=== PATIENT | female | born 1955 | race African-American/Black ===

== ENCOUNTER 2025-03-20 00:06 | Day surgery (SDC) | payer MEDICARE, MEDICAID, SELFPAY ==
[2025-03-08 14:30] VITALS: BMI 34.2
--- OUTSIDE RECORDS SUMMARY | 2025-03-20 00:09 | XMS_ITS | Data Portability ---
Author Organization [facility] MARKTamie Address [address] [place] [address] Care Team Providers Care Box Feeder Name Role Phone ZULEIMA LOJA Primary Care Provider Assessment No assessment recorded. Plan of Treatment Reminders Order Date Submit Date Provider Last Modified By Organization Details Last Modified Time Details Appointments ANY 30 2024 09:30A Wanda Bennett MD Not available Not available Not available Lab lipid panel, serum 2024 025 [facility], [address], [address], [place], [address], 02/21/2025 10:29:42 CBC 2024 025 [facility], [address], [address], [place], [address], 02/21/2025 10:29:44 CMP, serum or plasma 2023 024 [facility], [address], [place], [address], 03/17/2024 06:18:51 lipid panel, serum 2023 024 [facility], [address], [address], [place], [address], 03/17/2024 06:18:50 CBC 2023 024 [facility], [address], [address], [place], [address], 03/17/2024 06:18:52 TSH, ultra-s ensitiv e, serum 2023 024 [facility], [address], [address], [place], [address], 03/17/2024 06:18:51 Referral gastroe nterolo gist referra l 2024 025 andrzej Lopez MD, [address] [facility] [address], [place], [address], 02/20/2025 10:09:47 Procedures None recorde d. Surgeries None recorde d. Imaging MAMMO, screeni ng, digital , bilater al 2024 025 [facility] ([facility]amm[facility]) , [address], [place], [address], 03/14/2025 15:33:37 bone density 2024 025 [facility], [address], [place], [address], 03/12/2025 15:53:11 MAMMO, screeni ng, digital , bilater al 2023 024 [facility] ([facility]), [address] [place], [address], 03/22/2024 11:41:59 Medication Orders amlodip ine 5 mg tablet 2023 024 [facility], [address], [place], [id number], 11/02/2024 16:04:48 losarta n 100 mg-hydr ochloro thiazid e 12.5 mg tablet 2023 024 [facility], [address] [place] [address], [id number], 07/04/2024 11:02:18 atorvas tatin 40 mg tablet 2023 024 [facility], [address] [place] [address], [id number], 11/02/2024 16:04:50 ergocal ciferol (vitami n D2) 1,250 mcg (50,000 unit) capsule 2023 024 [facility], [address] [place] [address], [id number], 07/04/2024 11:02:19 ibuprof en 800 mg tablet 2023 024 [facility], [address] [place] [address], [id number], 05/08/2024 15:47:39 Patient TargetsNo targets recorded. Patient Instructions Encounter Date Encounter Id Patient Instructions Last Modified By Organization Details Last Modified Time 03/14/2024 [id number] high cholesterol : care instructions [email or web address] Not available 03/14/2024 17:05:57 A healthy lifestyle: care instructions Not available 03/14/2024 17:05:57 learning about breast cancer screening [email or web address] Not available 03/14/2024 17:07:46 learning about high blood pressure Not available 03/14/2024 17:05:57 05/02/2024 [id number] A healthy lifestyle: care instructions [email or web address] Not available 05/02/2024 15:57:42 07/25/2024 [id number] learning about high blood pressure [email or web address] Not available 07/25/2024 10:50:56 high cholesterol : care instructions [email or web address] Not available 07/25/2024 10:50:56 11/28/2024 [id number] learning about high blood pressure [email or web address] Not available 11/28/2024 10:44:37 high cholesterol : care instructions Not available 11/28/2024 10:44:37 02/20/2025 [id number] advance care planning: care instructions Not available 02/20/2025 10:53:06 preventing falls : care instructions [email or web address] Not available 02/20/2025 10:53:06 Quitting Tobacco : Care Instructions [email or web address] Not available 02/20/2025 10:53:06 Medicare Wellnes s Preventive Checklist [email or web address] Not available 02/20/2025 10:53:07 eating healthy foods: care instructions Not available 02/20/2025 10:53:06 AD8 Dementia Screening Interview [email or web address] Not available 02/20/2025 10:53:06 Reason for Referral Customer Experience Associate Referral for Screening for malignant neoplasm of colon History colon polyps. Last colonoscopy over 5 yrs ago Referring Physician: Zuleima Loja, Internal Medicine, Encounter Date: 11/28/2024 Results Created Date Observation Date Name Description Value Unit Range Abnormal Flag Note LastModifiedBy Organization Detail LastModifiedTime 03/16/20 24 03/17/2024 LIPID PANEL cholesterol, total 192 mg/dL 100-19 9 Not Available [facility] ([facility]) [address] [place], [address], 03/17/2024 06:18:50 03/16/20 24 03/17/2024 LIPID PANEL triglyceride s 119 mg/dL 0-149 Not Available [facility] ([facility]) [address] [place], [address], 03/17/2024 06:18:50 03/16/2003/17/2024 LIPID PANEL HDL cholesterol 45 mg/dL >39 Not Available [facility] ([facility]) [address] [place], [address], 03/17/2024 06:18:50 03/16/20 24 03/17/2024 LIPID PANEL VLDL cholesterol олег 21 mg/dL 5-40 Not Available [facility] ([facility]) [address] [place], [address], 03/17/2024 06:18:50 03/16/20 24 03/17/2024 LIPID PANEL LDL chol calc ([facility]) 126 mg/dL 0-99 above high normal Not Available [facility] ([facility]) [address] [place], [address], 03/17/2024 06:18:50 03/16/20 24 03/17/2024 COMP. METAB OLIC PANEL (14) glucose 93 mg/dL 70-99 Not Available [facility] ([facility]) [address] [place], [address], 03/17/2024 06:18:50 03/16/20 24 03/17/2024 COMP. METAB OLIC PANEL (14) BUN 9 mg/dL 8-27 Not Available [facility] ([facility]) [address] [place], [address], 03/17/2024 06:18:50 03/16/20 24 03/17/2024 COMP. METAB OLIC PANEL (14) creatinine 0.60 mg/dL 0.57-1 .00 Not Available [facility] ([facility]) [address] [place], [address], 03/17/2024 06:18:50 03/16/20 24 03/17/2024 COMP. METAB OLIC PANEL (14) eGFR 98 mL/mi n/1.7 3 >59 Not Available [facility] ([facility]) [address] [place], [address], 03/17/2024 06:18:50 03/16/20 24 03/17/2024 COMP. METAB OLIC PANEL (14) BUN/creatini ne ratio 15 12-28 Not Available [facility] ([facility]) [address] [place], [address], 03/17/2024 06:18:50 03/16/20 24 03/17/2024 COMP. METAB OLIC PANEL (14) sodium 139 mmol/ L 134-14 4 Not Available [facility] ([facility]) [address] [place], [address], 03/17/2024 06:18:50 03/16/20 24 03/17/2024 COMP. METAB OLIC PANEL (14) potassium 4.3 mmol/ L 3.5-5. 2 Not Available [facility] ([facility]) [address] [place], [address], 03/17/2024 06:18:50 03/16/20 24 03/17/2024 COMP. METAB OLIC PANEL (14) chloride 102 mmol/ L 96-106 Not Available [facility] ([facility]) [address] [place], [address], 03/17/2024 06:18:50 03/16/20 24 03/17/2024 COMP. METAB OLIC PANEL (14) carbon dioxide, total 26 mmol/ L 20-29 Not Available [facility] ([facility]) [address] [place], [address], 03/17/2024 06:18:50 03/16/20 24 03/17/2024 COMP. METAB OLIC PANEL (14) calcium 9.3 mg/dL 8.7-10 .3 Not Available [facility] ([facility]) [address] [place], [address], 03/17/2024 06:18:50 03/16/20 24 03/17/2024 COMP. METAB OLIC PANEL (14) protein, total 6.9 g/dL 6.0-8. 5 Not Available [facility] ([facility]) [address] [place], [address], 03/17/2024 06:18:50 03/16/20 24 03/17/2024 COMP. METAB OLIC PANEL (14) albumin 3.8 g/dL 3.9-4. 9 below low normal Not Available [facility] ([facility]) [address] [place], [address], 03/17/2024 06:18:50 03/16/20 24 03/17/2024 COMP. METAB OLIC PANEL (14) globulin, total 3.1 g/dL 1.5-4. 5 Not Available [facility] ([facility]) [address] [place], [address], 03/17/2024 06:18:50 03/16/20 24 03/17/2024 COMP. METAB OLIC PANEL (14) A/G ratio 1.2 1.2-2. 2 Not Available [facility] ([facility]) [address] [place], [address], 03/17/2024 06:18:50 03/16/20 24 03/17/2024 COMP. METAB OLIC PANEL (14) bilirubin, total 0.4 mg/dL 0.0-1. 2 Not Available [facility] ([facility]) [address] [place], [address], 03/17/2024 06:18:50 03/16/20 24 03/17/2024 COMP. METAB OLIC PANEL (14) alkaline phosphatase 122 IU/L 44-121 above high normal Not Available [facility] ([facility]) [address] [place], [address], 03/17/2024 06:18:50 03/16/20 24 03/17/2024 COMP. METAB OLIC PANEL (14) AST (SGOT) 28 IU/L 0-40 Not Available [facility] ([facility]) [address] [place], [address], 03/17/2024 06:18:50 03/16/20 24 03/17/2024 COMP. METAB OLIC PANEL (14) ALT (SGPT) 25 IU/L 0-32 Not Available [facility] ([facility]) [address] [place], [address], 03/17/2024 06:18:50 03/16/2003/17/2024 TSH TSH 2.890 uIU/m L 0.450- 4.500 Not Available [facility] ([facility]) [address] [facility], [place], [address], 03/17/2024 06:18:51 03/16/2003/17/2024 CBC, PLATE LET, NO DIFFE RENTI AL WBC 5.3 x10e3 /uL 3.4-10 .8 Not Available [facility] ([facility]) [address] [facility], [place], [address], 03/17/2024 06:18:52 03/16/2003/17/2024 CBC, PLATE LET, NO DIFFE RENTI AL RBC 4.65 x10e6 /uL 3.77-5 .28 Not Available [facility] ([facility]) [address] [facility], [place], [address], 03/17/2024 06:18:52 03/16/2003/17/2024 CBC, PLATE LET, NO DIFFE RENTI AL hemoglobin 13.4 g/dL 11.1-1 5.9 Not Available [facility] ([facility]) [address] [facility], [place], [address], 03/17/2024 06:18:52 03/16/2003/17/2024 CBC, PLATE LET, NO DIFFE RENTI AL hematocrit 41.3 % 34.0-4 6.6 Not Available [facility] ([facility]) [address] [facility], [place], [address], 03/17/2024 06:18:52 03/16/2003/17/2024 CBC, PLATE LET, NO DIFFE RENTI AL MCV 89 fL 79-97 Not Available [facility] ([facility]) [address] [place], [address], 03/17/2024 06:18:52 05/02/20 24 03/17/2024 CBC, PLATE LET, NO DIFFE RENTI AL MCH 28.8 pg 26.6-3 3.0 Not Available [facility] ([facility]) [address] [place], [address], 03/17/2024 06:18:52 03/16/20 24 03/17/2024 CBC, PLATE LET, NO DIFFE RENTI AL MCHC 32.4 g/dL 31.5-3 5.7 Not Available [facility] ([facility]) [address] [place], [address], 03/17/2024 06:18:52 03/16/20 24 03/17/2024 CBC, PLATE LET, NO DIFFE RENTI AL RDW 13.7 % 11.7-1 5.4 Not Available [facility] ([facility]) [address] [place], [address], 03/17/2024 06:18:52 03/16/20 24 03/17/2024 CBC, PLATE LET, NO DIFFE RENTI AL platelets 510 x10e3 /uL 150-45 0 above high normal Not Available [facility] ([facility]) [address] [place], [address], 03/17/2024 06:18:52 02/21/20 25 02/21/2025 LIPID PANEL cholesterol, total 210 mg/dL 100-19 9 above high normal Not Available [facility] ([facility]) [address] [place], [address], 02/21/2025 10:29:42 02/21/20 25 02/21/2025 LIPID PANEL triglyceride s 163 mg/dL 0-149 above high normal Not Available [facility] ([facility]) [address] [place], [address], 02/21/2025 10:29:42 02/21/20 25 02/21/2025 LIPID PANEL HDL cholesterol 45 mg/dL >39 Not Available [facility] ([facility]) [address] [facility], [place], [address], 02/21/2025 10:29:42 02/21/20 25 02/21/2025 LIPID PANEL VLDL cholesterol олег 29 mg/dL 5-40 Not Available [facility] ([facility]) [address] [facility], [place], [address], 02/21/2025 10:29:42 02/21/20 25 02/21/2025 LIPID PANEL LDL chol calc ([facility]) 136 mg/dL 0-99 above high normal Not Available [facility] ([facility]) [address] [facility], [place], [address], 02/21/2025 10:29:42 02/21/20 25 02/21/2025 CBC, PLATE LET, NO DIFFE RENTI AL WBC 6.1 x10e3 /uL 3.4-10 .8 Not Available [facility] ([facility]) [address] [facility], [place], [address], 02/21/2025 10:29:44 02/21/20 25 02/21/2025 CBC, PLATE LET, NO DIFFE RENTI AL RBC 4.93 x10e6 /uL 3.77-5 .28 Not Available [facility] ([facility]) [address] [facility], [place], [address], 02/21/2025 10:29:44 02/21/20 25 02/21/2025 CBC, PLATE LET, NO DIFFE RENTI AL hemoglobin 14.2 g/dL 11.1-1 5.9 Not Available [facility] ([facility]) [address] [facility], [place], [address], 02/21/2025 10:29:44 02/21/20 25 02/21/2025 CBC, PLATE LET, NO DIFFE RENTI AL hematocrit 43.3 % 34.0-4 6.6 Not Available [facility] ([facility]) [address] [facility], [place], [address], 02/21/2025 10:29:44 02/21/20 25 02/21/2025 CBC, PLATE LET, NO DIFFE RENTI AL MCV 88 fL 79-97 Not Available [facility] ([facility]) [address] [facility], [place], [address], 02/21/2025 10:29:44 02/21/20 25 02/21/2025 CBC, PLATE LET, NO DIFFE RENTI AL MCH 28.8 pg 26.6-3 3.0 Not Available [facility] ([facility]) [address] [facility], [place], [address], 02/21/2025 10:29:44 02/21/20 25 02/21/2025 CBC, PLATE LET, NO DIFFE RENTI AL MCHC 32.8 g/dL 31.5-3 5.7 Not Available [facility] ([facility]) [address] [facility], [place], [address], 02/21/2025 10:29:44 02/21/20 25 02/21/2025 CBC, PLATE LET, NO DIFFE RENTI AL RDW 14.0 % 11.7-1 5.4 Not Available [facility] ([facility]) [address] [facility], [place], [address], 02/21/2025 10:29:44 02/21/20 25 02/21/2025 CBC, PLATE LET, NO DIFFE RENTI AL platelets 536 x10e3 /uL 150-45 0 above high normal Not Available [facility] ([facility]) [address] [facility], [place], [address], 02/21/2025 10:29:44 03/22/20 24 03/22/2024 MAMMO , scree shadi, digit al, bilat eral No observ [facility]ion [facility] [address] [place], [address], 04/04/2024 12:51:32 03/22/20 24 03/22/2024 MAMMO , scree shadi, digit al, bilat eral No observ ation record ed. [facility] [address], [place], [address], 04/04/2024 12:51:32 Result Notes None recorded. Problems Name Problem SNOMED Code Status Onset Date Resolution Date Notes Provider Name and Address Organization Details Recorded Time Essential hypertension 19470846 Active 2023 Zuleima Loja MD Attn: Angel dang,[address], [place], [address], [place] [facility] 4 16:49:02 Hyperlipidemia 85888524 Active 2023 Zuleima Loja MD Attn: Angel dang,[address] [facility], [place], [address], [place] [facility] 4 16:49:40 Vitamin D deficiency 10025860 Active 2023 Zuleima Loja MD Attn: Angel g,[address], [place], [address], [place] [facility] 4 16:50:12 Pain of multiple joints 10332949 Active 2023 Zuleima Loja MD Attn: Angel dang,[address], [place], [address], [place] [facility] 4 16:51:42 Screening for malignant neoplasm of breast Active 2023 Zuleima Loja MD Attn: Angel g,[address] [facility], [place], [address], [place] [facility] 4 17:06:38 Screening for malignant neoplasm of colon Active 2024 Zuleima Loja MD Attn: Angel dang,[address], [place], [address], [place] [facility] 5 10:48:30 Spasm 26487852 Active 2024 Zuleima Loja MD Attn: Angel dang,[address] [facility], [place], [address], [facility] - [facility] 5 10:57:39 Notes:Some problems listed i n Document: #[id number] could not be added to this patient's chart. Please review this document and add these problems to the patient's chart manually as needed. Problem Notes None recorded. Procedures Surgical History Date Name Laterality Status Provider Name and Address Organization Details Recorded Time 4 Date of Last Mammogram completed Samantha Wolfe [place] [facility] 05/02/2024 14:01:45 3 Endometrial Biopsy completed MARLEN ARDON Attn: Accounting,[address] [facility], [place], [address], [facility] - [facility] 06/08/2023 12:53:29 2 Date of Last Pap Smear completed Karlee Quezada MA [place] [facility] 03/18/2022 09:52:51 1 Endometrial Biopsy completed MARLEN RADON Attn: Accounting,[address] [facility], [place], [address], [facility] - SI 04/10/2021 16:48:28 0 total knee replacement completed Tamia Limon MA [facility] 04/15/2021 11:09:19 7 colonoscopy completed Tamia Limon MA [facility] - [facility] 04/15/2021 11:12:07 0 removal of ectopic fetus completed MARLEN ARDON Attn: Accounting,[address] [facility], [place], [address], [facility] - SI 04/10/2021 16:49:34 Imaging Results Imaging Date Name Status LastModified by Organiz ation Details LastModified Time 03/22/2024 MAMMO, screening, digital, bilateral completed [address], [address], 04/04/2024 12:51:32 03/22/2024 MAMMO, screening, digital, bilateral completed [facility] [address] [place], [address], 04/04/2024 12:51:32 Procedure Notes None recorded. Medical Equipment None Reported. Allergies No known drug allergies Medications Name Sig Start Date Stop Date Status Note LastModified by Organization Details LastModified Time celecoxib 200 mg capsule TK 2 CS PO WITH BREAKFAST THE DAY BEFORE SURGERY. TK 1 BID FOR 4 DAYS AFTER DISCHARGE 04/10 completed Not Available Not Available Not Available penicillin V potassium 250 mg tablet 04/10 completed Not Available Not Available Not Available amoxicillin 500 mg capsule TAKE TWO CAPSULES BY MOUTH AT ONCE, THEN TAKE ONE CAPSULE FOUR TIMES DAILY UNTIL GONE FOR INFECTION 03/14 completed Not Available Not Available Not Available atorvastati n 40 mg tablet TAKE ONE TABLET BY MOUTH EVERY NIGHT AT BEDTIME TO LOWER CHOLESTER OL active Not Available Not Available No t Available prednisone 10 mg tablet 02/16 completed Not Available Not Available Not Available doxycycline hyclate 100 mg capsule TAKE ONE CAPSULE BY MOUTH TWICE DAILY FOR 10 DAYS 07/09 completed Not Available Not Available Not Available cetirizine 10 mg tablet TAKE 1 TABLET BY MOUTH DAILY active Not Available Not Available No t Available azithromyci n 250 mg tablet TAKE 2 TABLETS BY MOUTH FOR 1 DAY THEN TAKE 1 TABLET BY MOUTH DAILY FOR 4 DAYS 11/28 completed Not Available Not Available Not Available ibuprofen 800 mg tablet TAKE ONE TABLET BY MOUTH TWICE DAILY EVERY MORNING & EVENING WITH MEALS FOR PAIN active Not Available Not Available No t Available tizanidine 4 mg tablet 04/10 completed Not Available Not Available Not Available benzonatate 200 mg capsule TAKE 1 CAPSULE BY MOUTH EVERY 8 HOURS NEEDED FOR COUGH active Not Available Not Available No t Available penicillin V potassium 500 mg tablet TAKE 1 TABLET BY MOUTH FOUR TIMES DAILY FOR 10 DAYS 04/10 completed Not Available Not Available Not Available acetaminoph en 300 mg-codeine 30 mg tablet TAKE 1-2 TABLETS BY MOUTH EVERY 6 HOURS NEEDED FOR PAIN 12/11 completed Not Available Not Available Not Available amlodipine 5 mg tablet TAKE ONE TABLET BY MOUTH EVERY EVENING FOR BLOOD PRESSURE active Not Available Not Available No t Available sulfamethox azole 800 mg-trimetho prim 160 mg tablet TK 1 T PO BID FOR 7 DAYS 04/10 completed Not Available Not Available Not Available tramadol 50 mg tablet TAKE 1 TABLET BY MOUTH EVERY 8 HOURS NEEDED 03/14 completed Not Available Not Available Not Available oxycodone-a cetaminophe n 5 mg-325 mg tablet TAKE ONE TABLET BY MOUTH EVERY 6 HOURS NEEDED FOR moderate pain (4-6 ON scale) 08/12 completed Not Available Not Available Not Available amoxicillin 875 mg tablet TAKE 1 TABLET BY MOUTH EVERY 12 HOURS active Not Available Not Available No t Available prednisolon e acetate 1 % eye drops,suspe nsion instill one drop into surgical IN THE AFFECTED EYE THREE TIMES DAILY STARTING AFTER surgery AND continue FOR THREE WEEKS 03/14 completed Not Available Not Available Not Available aspirin 325 mg tablet,justin yed release 04/10 completed Not Available Not Available Not Available ciprofloxac in 0.3 % eye drops instill ONE drop into surgical IN THE AFFECTED EYE THREE TIMES DAILY STARTING TWO WEEKS prior TO surgery AND continuin g FOR one WEEK AFTER 03/14 completed Not Available Not Available Not Available cephalexin 500 mg capsule TAKE ONE CAPSULE BY MOUTH EVERY 8 HOURS FOR 10 DAYS 12/11 completed Not Available Not Available Not Available erythromyci n 5 mg/gram (0.5 %) eye ointment apply ONE applicati on in THE affected IN THE AFFECTED EYE EVERY 8 HOURS 07/09 completed Not Available Not Available Not Available diclofenac 0.1 % eye drops instill one drop into surgical IN THE AFFECTED EYE THREE TIMES DAILY beginning TWO DAYS prior TO surgery AND continuin g FOR TWO WEEKS AFTER 03/14 completed Not Available Not Available Not Available hydrochloro thiazide 12.5 mg capsule TAKE 1 CAPSULE BY MOUTH EVERY DAY DIRECTED 08/15 completed Not Available Not Available Not Available mupirocin 2 % topical ointment APPLY TOPICALLY TO NOSTRILS BID STARTING 5 DAYS PRIOR TO SURGERY 04/10 completed Not Available Not Available Not Available ergocalcife rol (vitamin D2) 1,250 mcg (50,000 unit) capsule TAKE ONE CAPSULE BY MOUTH ONCE WEEKLY FOR VITAMIN DEFICIANC Y active Not Available Not Available No t Available methylpredn isolone 4 mg tablets in a dose pack FOLLOW PACKAGE DIRECTION S 11/28 completed Not Available Not Available Not Available albuterol sulfate HFA 90 mcg/actuati on aerosol inhaler INHALE 2 PUFFS BY MOUTH EVERY 4-6 HOURS NEEDED active Not Available Not Available No t Available celecoxib 100 mg capsule TAKE 1 CAPSULE BY MOUTH EVERY DAY NEEDED 03/14 completed Not Available Not Available Not Available ondansetron 4 mg disintegrat ing tablet 04/10 completed Not Available Not Available Not Available losartan 100 mg tablet TAKE ONE TABLET BY MOUTH EVERY DAY FOR BLOOD PRESSURE 05/02 completed Not Available Not Available Not Available fluticasone propionate 50 mcg/actuati on nasal spray,suspe nsion 1 SPRAY IN EACH NOSTRIL EVERY NIGHT BEFORE BEDTIME active Not Available Not Available No t Available naproxen 500 mg tablet TAKE 1 TABLET BY MOUTH TWICE DAILY WITH FOOD 04/10 completed Not Available Not Available Not Available cyclobenzap rine 5 mg tablet TAKE ONE TABLET BY MOUTH THREE TIMES A DAY, MORNING, MIDDAY AND BEDTIME NEEDED FOR MUSCLE SPASMS active Not Available Not Available No t Available nitrofurant oin monohydrate /macrocryst als 100 mg capsule Take 1 capsule every 12 hours by oral route for 5 days. 03/14 completed Not Available Not Available Not Available losartan 100 mg-hydrochl orothiazide 12.5 mg tablet TAKE ONE TABLET BY MOUTH EVERY MORNING FOR BLOOD PRESSURE & FLUID RETENTION active Not Available Not Available No t Available Oysco 500/D 500 mg-5 mcg (200 unit) tablet TAKE 1 TABLET BY MOUTH TWICE DAILY 07/09 completed Not Available Not Available Not Available hydrochloro thiazide 12.5 mg tablet TAKE 1 TABLET BY MOUTH ONCE DAILY FOR BLOOD PRESSURE AND FOR FLUID RETENTION 11/28 completed Not Available Not Available Not Available cholecalcif jarrod (vitamin D3) 1,250 mcg (50,000 unit) capsule Take 1 capsule every week by oral route as directed for 30 days. 03/14 completed Not Available Not Available Not Available Calcium with Vitamin D 600 mg-10 mcg (400 unit) tablet Take 1 tablet twice a day by oral route. 03/14 completed Not Available Not Available Not Available Stimulant Laxative Plus 8.6 mg-50 mg tablet 04/10 completed Not Available Not Available Not Available Pennsaid 20 mg/gram/act uation (2 %) topical soln in metered-dos e pump APPLY 2 PUMPS (40 MG) TO THE AFFECTED KNEE(S) BY TOPICAL ROUTE 2 TIMES PER DAY 04/22 completed Not Available Not Available Not Available COVID-19 test specimen collection TEST DIRECTED TODAY 03/18 completed Not Available Not Available Not Available BinaxNOW COVID-19 Ag Self Test kit TEST DIRECTED TODAY active Not Available Not Available No t Available Paxlovid 300 mg (150 mg x 2)-100 mg tablets in a dose pack FOLLOW PACKAGE DIRECTION S 03/14 completed Not Available Not Available Not Available Vitals Date Recorded Body height Provider Name an d Address Organization Details Last Updated DateTime 03/14/2024 160.02 cm Tanesha Christina MA [facility] 4 16:23:41 Date Recorded Body mass index (BMI) Body weight Heart rate Oxygen saturation Oxygen saturation in Arterial blood by Pulse oximetry Systolic blood pressure Diastolic blood pressure Provider Name and Address Organization Details Last Updated DateTime 4 36.5 kg/m2 77428.0 3 g 89 /min 98 % 98 % 134 mm[Hg] 74 mm[Hg] Steph Angeles MA [facility] 4 16:36:08 Date Recorded Body height Body temperature Respiratory rate Body mass index (BMI) Body weight Oxygen saturation Oxygen saturation in Arterial blood by Pulse oximetry Heart rate Systolic blood pressure Diastolic blood pressure Provider Name and Address Organization Details Last Updated DateTime 4 160.02 cm 98.1 [degF] 16 /min 36.7 kg/m2 75277.6 2 g 98 % 98 % 90 /min 130 mm[Hg] 74 mm[Hg] Samantha Wolfe MA [facility] 4 14:17:01 Date Recorded Body height Body mass index (BMI) Body weight Heart rate Oxygen saturation Oxygen saturation in Arterial blood by Pulse oximetry Systolic blood pressure Diastolic blood pressure Provider Name and Address Organization Details Last Updated DateTime 4 160.02 cm 36.9 kg/m2 62419.5 7 g 73 /min 99 % 99 % 145 mm[Hg] 74 mm[Hg] Maureen Shannon MA [facility] 4 10:15:05 Date Recorded Body height Body mass index (BMI) Body weight Heart rate Oxygen saturation Oxygen saturation in Arterial blood by Pulse oximetry Systolic blood pressure Diastolic blood pressure Provider Name and Address Organization Details Last Updated DateTime 5 160.02 cm 37.4 kg/m2 93821.9 9 g 79 /min 98 % 98 % 122 mm[Hg] 77 mm[Hg] Maureen Shannon MA [facility] 5 10:22:15 Date Recorded Body height Body mass index (BMI) Body weight Heart rate Oxygen saturation Oxygen saturation in Arterial blood by Pulse oximetry Systolic blood pressure Diastolic blood pressure Provider Name and Address Organization Details Last Updated DateTime 5 160.02 cm 37 kg/m2 63980.8 1 g 81 /min 99 % 99 % 138 mm[Hg] 70 mm[Hg] Maureen Shannon MA [facility] 5 10:14:25 Social History Question Answer Notes LastModified by Organizat ion Details LastModified Time Tobacco Smoking Status Former Smoker Elda Jordan MA [facility], [facility] 04/10/2021 15:15:18 Do You Have An Advance Directive? No Information not available 04/10/2021 What Is Your Level Of Alcohol Consumption? None Information not available 04/10/2021 Are You Blind Or Do You Have Difficulty Seeing? No Information not available 03/14/2024 What Is Your Level Of Caffeine Consumption? Occasional Information not available 02/16/2022 Are You Currently Employed? No Retired Information not available 03/18/2022 Are You Deaf Or Do You Have Serious Difficulty Hearing? No Information not available 03/14/2024 What Type Of Diet Are You Following? REGULAR Information not available 03/14/2024 What Was The Date Of Your Most Recent Tobacco Screening? 02/20/2025 Information not available 02/20/2025 What Is Your Relationship Status? Information not available 04/10/2021 Do You Use Your Seat Belt Or Car Seat Routinely? Yes Information not available 04/15/2021 Are You Sexually Active? Yes Information not available 04/10/2021 Do You Have Smoke And Carbon Monoxide Detectors In Your Home? Yes Information not available 04/10/2021 At What Age Did You Start Smoking Tobacco? 17 Information not available 04/10/2021 Are You Passively Exposed To Smoke? Yes Information not available 04/10/2021 Do You Feel Stressed (tense, Restless, Nervous, Or Anxious, Or Unable To Sleep At Night)? [id number] Information not available 04/15/2021 Do You Use Any Illicit Or Recreational Drugs? No Information not available 04/10/2021 Do You Use Sunscreen Routinely? No Information not available 02/16/2022 Has Tobacco Cessation Counseling Been Provided? Yes Information not available 11/28/2024 On What Date Was Tobacco Cessation Counseling Provided? 02/20/2025 Information not available 02/20/2025 Do You Or Have You Ever Used Any Other Forms Of Tobacco Or Nicotine? No Information not available 04/10/2021 Sex: Female Functional Status Question Answer Note LastModified by Organization D etails LastModified Time Are you able to care for yourself? Yes Information not available 03/14/2024 What is your exercise level? Moderate Information not available 03/14/2024 Mental Status None recorded. Family History Nothing Reported. Medical History Condition Response Coronary Artery Disease N Atrial Fibrillation N High Blood Pressure Y Depression N COPD N Blood Clots N Anxiety Disorder Y Muscle, Joint, or Bone Problems N Acid Reflux (GERD) Y Cancer N Stroke N Kidney or Bladder Problems N Asthma N Hepatitis N High Cholesterol Y Liver Disease N Thyroid Problems N GI Problems N Anemia Y Heart Attack (NH) N Diabetes N Seizures/Epilepsy N Osteoporosis Y Heart Failure N Gynecological History Statement/Question Response If Post Menopausal, Age at Menopause 54 Date of Last Pap Smear 03/18/2022 Current Control Method Menopause Date of Last Mammogram 03/22/2024 Date of LMP Obstetrics History GPAL:G 3 P 0 0 2 2 Type Value Multiple Births 1 Spontaneous 2 Living 2 Total 3 Immunizations Vaccine Type Date Status Note Provider Nam e and Address Organization Details Recorded Time COVID-19, mRNA, LNP-S, PF, 30 mcg/0.3 mL dose 0 completed Maureen [place], [place] [facility] 02/20/2025 10:05:20 COVID-19, mRNA, LNP-S, PF, 30 mcg/0.3 mL dose 1 completed [place]ureen [place] [facility] 02/20/2025 10:05:20 COVID-19, mRNA, LNP-S, PF, 30 mcg/0.3 mL dose 1 completed [place]ureen [place] [facility] 02/20/2025 10:02:12 zoster live 7 completed Maureen [place] [facility] 02/20/2025 10:05:20 COVID-19, mRNA, LNP-S, PF, 30 mcg/0.3 mL dose, javier-sucrose 2 completed SHERIE [place] [facility] 02/20/2025 10:02:12 Influenza, adjuvanted, trivalent, PF 4 completed [place]ureen [place] [facility] 02/20/2025 10:05:20 COVID-19, mRNA, LNP-S, bivalent, PF, 30 mcg/0.3 mL dose 2 completed [place]ureen [place] [facility] 02/20/2025 10:05:20 COVID-19, mRNA, LNP-S, PF, javier-sucrose, 30 mcg/0.3 mL 4 completed [place]ureen [place] [facility] 02/20/2025 10:05:20 influenza, unspecified formulation 8 completed [place]ureen [place] [facility] 02/20/2025 10:05:20 influenza, unspecified formulation 9 completed [place]ureen [place] [facility] 02/20/2025 10:05:20 influenza, unspecified formulation 7 completed SHER[place] [facility] 02/20/2025 10:05:20 Influenza, split virus, trivalent, preservative 3 completed Clarkdomo [place] [facility] 02/20/2025 10:05:20 Influenza, split virus, quadrivalent, PF 0 completed Clarkdomo [place] [facility] 02/20/2025 10:05:20 Influenza, split virus, quadrivalent, preservative 1 completed Darionandrew Re[place] [facility] 08/15/2021 11:06:11 Tdap 2 completed Darion [place] [facility] 04/22/2022 14:18:29 pneumococcal polysaccharide PPV23 2 completed Darion [place] [facility] 07/09/2022 13:15:56 Influenza, split virus, quadrivalent, PF 2 completed Mariano Aquino MD Attn: [address]ing[address] [place], [address], [place] [facility] 09/08/2022 14:59:33 Influenza, high-dose, quadrivalent, PF 3 completed Steph [place] [facility] 08/26/2023 14:40:27 Past Encounters Encounter ID Performer Location Encounter Start Date Encounter Closed Date Diagnosis/Indication Diagnosis SNOMED-CT Code Diagnosis ICD10 Code Diagnosis Note [id number] MARLEN ARDON ([employer]) [address] [place] [address] [id number] 04/10/2021 14:44:29 04/14/2021 17:14:40 Gynecologic examination 32823507 Z01.419 -clinical pelvic examinatio n completed today, unremarkab le -cervical cancer screening: last Pap unknown, updated today -routine nuswab completed, treat as needed -Educated osteoporos is prevention including calcium rich diet, weight bearing exercise. Will start supplement . Venereal d isease screening 844469429 Z11.3 Postmenopa usal bleeding 57995782 N95.0 Intermitte nt light vaginal bleeding x 2 years. TVUS revealed thickened endometriu m (13.7) and fibroid uterus. Endometria l sampling recommende d and EMB performed as documented in procedure note. Will contact pt with results. [id number] Mariano Aquino MD [facility] (Adult Med) [address] [place] [address] 0 04/15/2021 10:56:15 04/16/2021 14:20:57 Generalized osteoarthritis 003065044 M15.9 PRN on ibuprofen. Essential hypertension 69325916 I10 Low salt diet, exercise and lose weight . avoid OTC decongesta nt. Hyperlipidemia 22430388 E78.5 Low saturated and low animal fat diet. [id number] [facility] [address] [place] [address] [id number] 0 08/15/2021 09:59:51 08/18/2021 12:09:39 Hypertensive disorder 79685618 I10 Low salt diet, avoid NSAID or OTC decongesta nt if possible. Generalize d osteoarthritis 974020885 M15.9 PRN on ibuprofen. Right lower leg sore off and on, no back pain. no visible lesion on the right leg. No swelling of leg neither. Willing to try topical cream. Dyslipidemia 009612287 E 78.5 Low animal fat and low saturated fat diet. Administra tion of influenza vaccine 94076173 Z23 Not sick , no fever, had flu vaccinatio n last year. [id number] [facility] [address] [place] [address] [id number] 0 02/16/2022 09:42:59 02/17/2022 14:58:51 Hypertensive disorder 71359413 I10 Low salt diet, avoid NSAID or OTC decongesta nt if possible. Hyperlipidemia 11938145 E78.5 Low saturated and low animal fat diet. Generalize d osteoarthritis 056224177 M15.9 PRN on ibuprofen. Right lower leg sore off and on, no back pain. no visible lesion on the right leg. No swelling of leg neither. Willing to try topical cream. Screening mammography 24 414459 Z12.31 Annual check up. Screening for malignant neoplasm of cervix 479658018 Z12.4 She is going to make appointmen t with her gynecologi st. Dyslipidemia 624739750 E 78.5 Low animal fat and low saturated fat diet. Gynecologi c examination 67736855 Z01.419 Morbid obesity 792038709 E66.01 Possible metabolic syndrome x. [id number] MARLEN ARDON ([employer]) [address] [place] [address] [id number] 0 03/18/2022 09:42:21 03/20/2022 07:57:22 Gynecologic examination 17436712 Z01.419 Normal gynecologi c exam today.Cerv ical cancer screening: Last Pap March 2021 unsatisfac brentonandrew, updated todayBreas t cancer screening: Last mammogram 02/23/22, BIRADS 1. Recommende d annual screeningO steoporosi s screening: Dexa ordered todayColon oscopy: UTD (2017)Diet /exercise: Counseled regarding importance of physical activity, healthy diet and appropriat e calcium intake.RTC in 1yr Screening for osteoporosis 211734979 Z13.820 Discussed calcium/vi t D supplement ation and weight bearing exercises. [id number] MD Jed Hardin (Adult Med) [address] [place] [address] [id number] 0 04/22/2022 11:59:16 04/23/2022 11:54:23 Hypertensive disorder 39717226 I10 Low salt diet, avoid NSAID or OTC decongesta nt if possible. Blood pressure is well controlled . readinf is 140/80 mm HG today, 04-22-2022 . On amlodipine . losartan. Generalize d osteoarthritis 161691190 M15.9 PRN on ibuprofen. Right lower leg sore off and on, no back pain. no visible lesion on the right leg. No swelling of leg neither. Willing to try topical cream.On calcium with vitamin D. Senile osteopenia 217935 06 M85.80 On calcium with vitamin D. Dyslipidemia 577524330 E 78.5 Low animal fat and low saturated fat diet. and on atorvastat in. Adult heal th examination 393328641 Z00.00 Patient been interviewe d, examined and lists of medication s reviewed, NKDA. will order chest x ray and EKG as Dr. Neeta Kirby office has been contacted. They already took care of Laboratory tests,. No medical objection for the foot operation. She will do the fasting blood test another day. Administra tion of diphtheria, pertussis, and tetanus vaccine 783258774 Z23 She tolerated shot well today 04-22-2022 . [id number] MD Jed Hardin (Adult Med) [address] [place] [address] [id number] 0 07/09/2022 10:20:20 07/14/2022 15:19:53 Lateral epicondylitis of right humerus 7542231508 65308 M77.11 Discussed with patient, she agreed for x ray and referral. Administra tion of pneumococcal vaccine 20636625 Z23 She tolerated shot well. [id number] MD Jed Hardin (Adult Med) [address] [place] [address] [id number] 0 08/12/2022 09:45:24 08/13/2022 12:23:51 Hypertensive disorder 19844698 I10 Low salt diet, avoid NSAID or OTC decongesta nt if possible. Blood pressure is well controlled . reading is 140/80 mm HG today, 04-22-2022 . On amlodipine . losartan. She ran out med, will refill today. As 08-12-2022 bp is 152/78. Lateral ep icondylitis of right humerus 2303309362 40731 M77.11 Discussed with patient, she agreed for x ray and referral. She said she has not been contacted for the orthopedic , [facility] make another orthopedic referral. Dyslipidemia 954714208 E 78.5 Low animal fat and low saturated fat diet. and on atorvastat in. Generalize d osteoarthritis 514831686 M15.9 PRN on ibuprofen. Right lower leg sore off and on, no back pain. no visible lesion on the right leg. No swelling of leg neither. Willing to try topical cream.On calcium with vitamin D. [id number] MD Jed Hardin (Adult Med) [address] [place] [address] [phone] 0 09/08/2022 09:56:53 09/09/2022 10:16:53 Active or passive immunization 045302958 Z23 [id number] MD Jed Hardin (Adult Med) [address] [place] [address] [id number] 0 12/11/2022 09:43:52 12/11/2022 15:22:32 Obesity 896820017 E66.9 BMI is 35.6, she has been advised to watch her diet, exercise and keep the weight down. Essential hypertension 89438885 I10 Low salt diet, exercise and lose weight . avoid OTC decongesta nt.As 12-11-2022 , Her BP is 130/82. Dyslipidemia 517286578 E 78.5 Low animal fat and low saturated fat diet. and on atorvastat in. Hypertensive disorder 38 852429 I10 Low salt diet, avoid NSAID or OTC decongesta nt if possible. Blood pressure is well controlled . reading is 140/80 mm HG today, 04-22-2022 . On amlodipine . losartan. She ran out med, will refill today. As 08-12-2022 bp is 152/78. Generalize d osteoarthritis 366709567 M15.9 PRN on ibuprofen. Right lower leg sore off and on, no back pain. no visible lesion on the right leg. No swelling of leg neither. Willing to try topical cream.On calcium with vitamin D. [id number] Mariano Aquino MD [facility] (Adult Med) [address] [place] [address] 04/27/2023 10:39:00 04/28/2023 17:05:38 Screening mammography 71081747 Z12.31 Annual check up. copy of report provided to her today, negative. 04-27-23. Edema of l eft lower leg 695696792 R60.0 Ankle, comes and goes. Arthritis of right knee 5995725419 191524 M13.861 Under the care of orthopedic , got joint injection. Hypertensive disorder 38 732418 I10 Low salt diet, avoid NSAID or OTC decongesta nt if possible. Blood pressure is well controlled . reading is 140/80 mm HG today, 04-22-2022 . On amlodipine . losartan. She ran out med, will refill today. As 08-12-2022 bp is 152/78. Generalize d osteoarthritis 279463883 M15.9 PRN on ibuprofen. Right lower leg sore off and on, no back pain. no visible lesion on the right leg. No swelling of leg neither. Willing to try topical cream.On calcium with vitamin D. Dyslipidemia 949135282 E 78.5 Low animal fat and low saturated fat diet. and on atorvastat in. [id number] MARLEN ARDON ([employer]) [address] [place] [address] [id number] 0 05/12/2023 13:56:59 05/17/2023 10:27:25 Postmenopausal bleeding 16757431 N95.0 Light vaginal bleeding x 2 weeks. Previous EMB performed 04/10/2021 showing atrophic endometriu m. Will follow up with TVUS. Discussed possibilit y of repeat EMBx to further assess. Uterine leiomyoma 841574 05 D25.9 US 04/08/2021 with enlarged myomatous uterus. Repeat imaging as above. [id number] [facility] [facility] [address] [place] [address] [phone] 0 06/08/2023 12:24:49 06/15/2023 14:13:15 Endometrium thickened 299299386 R93.89 TVUS 05/20/23 showing endometriu m 17mm. EMBx performed today as detailed in the procedure note, pt tolerated well. Will follow up with results. Postmenopa usal bleeding 08643644 N95.0 Light vaginal bleeding x 2-3 weeks last month. Previous EMB performed 04/10/2021 showing atrophic endometriu m. Uterine leiomyoma 381695 05 D25.9 US showing enlarged myomatous uterus, some with shadowing calcificat ions. [id number] MD Jed Hardin (Adult Med) [address] [place] [address] [id number] 0 08/26/2023 10:30:14 08/30/2023 14:48:40 Administration of influenza vaccine 51674355 Z23 Not sick , no fever, had flu vaccinatio n last year. Obesity 249672302 E66.9 BMI is 35.6, she has been advised to watch her diet, exercise and keep the weight down. As 08-26-23. BMI is 36.8. Vitamin D below reference range 405742611 E55.9 On vitamin D3 weekly. Senile osteopenia 117974 06 M85.80 On calcium with vitamin D. Degenerati on of uterine fibroid 7757450055 D25.9 calcified, on CT of abdomen, 08-20-2023 at [facility]. Under the care of her EARLY MORNING. April byrd osteoarthritis 627401318 M15.9 PRN on ibuprofen. Right lower leg sore off and on, no back pain. no visible lesion on the right leg. No swelling of leg neither. Willing to try topical cream.On calcium with vitamin D. On and off of right lower pain as 08-26-23. SARS-CoV-2 mRNA vaccine declined 7123322203 Z28.21 She declined 08-26-23. HIV screen ing declined 5604842714 29244 Z53.20 She declined 08-26-23. [id number] MD Jed Galaviz (Adult Med) [address] [place] [address] [id number] 0 03/14/2024 16:05:06 03/15/2024 11:48:11 Obesity 360654611 E66.9 Essential hypertension 99807889 I10 Hyperlipidemia 36955464 E78.5 Vitamin D deficiency 347 30189 E55.9 Pain of mu ltiple joints 29319990 M25.50 Hypertensive disorder 38 551203 I10 Dyslipidemia 551663774 E 78.5 Generalize d osteoarthritis 074974355 M15.9 Screening for malignant neoplasm of breast 090731540 Z12.39 [id number] MD Jed Olivera (Adult Med) [address] [place] [address] [id number] 0 05/02/2024 13:57:40 05/09/2024 16:28:28 Body mass index 30+ - obesity 026128109 Z68.36 Screening for malignant neoplasm of colon 794850043 Z12.11 Will get results from colonoscop y. Family his tory of malignant neoplasm of endometrium 3274810153 04966 Z80.49 Counseled patient that the warning sign to watch for is vaginal bleeding. I told her to let me know immediatel y if she has any vaginal bleeding at all. I also told her to let me know if she has any pelvic pain. Recommende d she return in one year for an evaluation . Reassured her she does not need any further PAPs since she has had routine PAPs and she has always had negative HPV and no abnormal cells. Hyperlipidemia 52628592 E78.5 Working on diet to lower LDL. [id number] MD Jed Galaviz (Adult Med) [address] [place] [address] [id number] 0 07/25/2024 09:48:08 07/26/2024 11:39:29 Essential hypertension 11130239 I10 Hyperlipidemia 64466368 E78.5 Pain of mu ltiple joints 80690622 M25.50 Vitamin D deficiency 347 54740 E55.9 [id number] Zuleima Loja MD [facility] (Adult Med) [address] [place] [address] [id number] 0 11/28/2024 09:54:40 12/06/2024 14:27:45 Essential hypertension 08179683 I10 Hyperlipidemia 30741109 E78.5 Pain of mu ltiple joints 28926842 M25.50 Vitamin D deficiency 347 73260 E55.9 Screening for malignant neoplasm of colon 023692462 Z12.11 [id number] Zuleima Loja MD [facility] (Adult Med) [address] [place] [address] [id number] 0 02/20/2025 09:49:47 02/22/2025 16:27:08 Adult health examination 325140022 Z00.01 Health Risk Assessment collected and reviewed Screening mammography of bilateral breasts 1184057930 97600 Z12.31 Health Concerns Section Related Observation LastModified by Organization Detai ls LastModified Time None Recorded Concern Status LastModified by Organization Details LastModified Time None Recorded Advance Directives Directive N: Payers Encounter Date Sequence Insurance Name Policy Number Policy Curiel Covered Member ID Curiel Member ID Guarantor Name 03/14/2024 1 [facility] (MEDICARE REPLACEMENT/A DVANTAGE - PPO) [id number] Radha [place] [id number] Summer Rai-Coop er 03/14/2024 2 [place] [facility] OF PUBLIC AID Smumer Rai-Cogeorgina r [id number] Summer Ybarras-Coop er 05/02/2024 1 [facility] (MEDICARE REPLACEMENT/A DVANTAGE - PPO) [id number] Radha [place] [id number] Summer Calimesa-Coop er 05/02/2024 2 [place] [facility] OF PUBLIC AID Summer Fredi-Coope r [id number] Summer Fredi-Coop er 07/25/2024 1 [facility] (MEDICARE REPLACEMENT/A DVANTAGE - PPO) [id number] Radha Rai Vinnie [id number] Summer [place] 07/25/2024 2 [place]ARE OR MEDICARE REPLACEMENT [place]IMARY) Radha Fredi-Coope r [id number] Summer Fredi-Coop er 11/28/2024 1 [facility] (MEDICARE REPLACEMENT/A DVANTAGE - PPO) [id number] Radha Ybarraidania [place] [id number] Summer [employer] 11/28/2024 2 [place]IC[place]PLACEMENT [place]IMARY) Radha Calimesa-Coope r [id number] Summer [employer] 02/20/2025 1 [facility] (MEDICARE REPLACEMENT/A DVANTAGE - PPO) [id number] Radha Ybarraidania [place] [id number] Summer [employer] 02/20/2025 2 [place] OR MEDICARE REPLACEMENT [place]IMARY) Radha Calimesa-Coope r [id number] Summer Fredi-Coop er Notes Date Note Type Note Provider Name and Address Organization Details Recorded Time 03/14/2024 text/html Here for f/u. Unsure when she needs to have a colonoscopy. Zuleima Loja MD Attn: [address] [place], [address], [place] [facility] 03/14/2024 17:10:14 05/02/2024 text/html women's health visit, does not need PAP smears any more, sister was diagnosed with uterine cancer, sister had cervical cancer and did not follow up with it for some time and was then diagnosed with uterine cancer, former smoker, has not smoked in years, no breast cancer in family, last had vaginal bleeding years ago, no vaginal discharge or dryness, every now and then hot flashes but not frequent and not a problem, has had routine PAPs and have always been normal, no history of abnormal PAP or positive HPV, had colonoscopy but not sure when needs to have it repeated, also had bone density Bessy Crawley MD Attn: [address] [place], [address], [place] [facility] 05/02/2024 15:58:11 07/25/2024 text/html Here for BP f/u. Zuleima Loja MD Attn: Accounting[address] [place], [address], [place] [facility] 07/25/2024 10:53:26 11/28/2024 text/html Here for routine BP f/u Zuleima Loja MD Attn: Accounting[address] [place], [address], [place] [facility] 11/28/2024 10:50:49 02/20/2025 text/html [facility] Requested permanent status for disability parking. Gets injections in knees every three months Zuleima Loja MD Attn: [address] [place], [address], [place] [facility] 02/20/2025 11:01:03 OBGyn Episode Ob Episode Information Episode Created Date Number of Fetuses Patient Bloodtype Patient rh Status Prepregnancy Weight lbs Domestic Partner Domestic Partner Phone Father Name Show Dog Trainer Status 05/12/20 23 2 CLOSED Fetus Data First Name Last Name Admitted to NICU Weight (g) Sex Living Outcome Pediatric Complications Fetus ID Race Codes Race Delivery Type M Full Term [id number] Primary M Full Term [id number] Primary Roman Calculation Initial Roman Date Initial Exam Date Initial Exam Provider Initial Ultrasound Date Last Menstrual Period Date Ultra Sound Weeks Gestation 0 Eighteen To Twenty Week Roman Update Ultra Sound Date Fundal Height At Umbil Quickening Date Ultra Sound Latest Weeks Gestation Final Roman Confirmed By Final Roman Confirmed Date Final Roman Date Ultra Sound Latest Days Gestation 0 0 Menstrual History Last Menstrual Date Menses Monthly On Bcp Conception Prior Menses Frequency Hcg Plus Date Menarche Onset Age Delivery Information Delivery Date Delivery Type Labor Anesthesia Weeks Gestation Incision Type Labor Labor Length Hrs Delivered By Post Complications Tubal Sterilization Discharge Date Comments 0 [facility] [address] del[address] at [facility] Discharge Information Feeding Method Contraceptive Method Maternal HG B and HCT Levels
--- OUTSIDE RECORDS SUMMARY | 2025-03-20 00:09 | XMS_ITS | Continuity of Care Document ---
Author Organization [facility] Address [address] [place] [phone] Phone Care Team Providers Care Golf Ball Inspector Name Role Phone Sarbjit Nicole MD Unavailable Unavailable Procedures Procedure Date Rating Letter Office/outpatient visit,est, mod 2008 Supplemental Report Office consultation, moderate 9 X-ray exam of knee, 1 or2 views 009 X-ray exam of both knees, standing Advance Directives Directive Yes / No Effective Date File Name No Information Encounters Encounter Description Practice Location Reason(s) For Visit Diagnoses Date Provider Providers Copied on Encounter Rating Letter [facility], [address], [id number], tel:[phone] [employer] [facility] No Information 0 Corey Schaffer. [address] [facility], [address], [id number] , [place]. tel: [phone] Office/outpat ient visit,est, mod [facility], [address], [id number], [place] tel:[phone] [facility] [employer] [facility] No Information 9 Corey Schaffer. [address] [place] [address], [id number] , [place]. tel: [phone] Office consultation, moderate [facility] [facility], [address], [id number], [place] tel:[phone] [facility] [employer] [facility] No Information 9 Corey Schaffer. [address] [facility], [address], [place], [place], [id number] , [place]. tel:[phone] Family History Family Member Type Diagnosis Age At Onset No Information Payers Payer name Insurance type Covered republican ID Authorjoeya katie(s) [facility] Workers Compensation Adm [id number] Social History Type Description Quantity Date Captured Comments Sex Female Smoking Status No Information Chief Complaint And Reason For Visit No Information Reason For Referral Reason For Referral No Information History Of Present Illness Encounter Date Complaint History Of Prese nt Illness No Information Functional Status Date Functional Assessmen t No Information Instructions Date Instruction Additional Infor mation No Information Assessments Type Assessment Date No Information Patient Care Teams Name Effective Dates (start - stop) Status Members No Information
--- OUTSIDE RECORDS SUMMARY | 2025-03-20 00:10 | XMS_ITS | Data Portability ---
Author Organization [place] [facility] [employer] Main Office Address [address] [place] [address] Care Team Providers Care Quality Reviewer Name Role Phone JASON LOJA Primary Care Provider JASON LOJA Referring Provider Assessment Encounter Date Assessment Date Assessment LastModified by Organization Details LastModified Time 01/25/2024 01/25/2024 The patient has moderately severe primary osteoarthritis of the right knee joint. Today we talked about treatment options she wanted to try another shot of cortisone therefore under sterile conditions I injected the patient's right knee in the office with 4 cc 0.5% bupivacaine and 20 mg of Kenalog. Patient tolerated the procedure well. Her left total knee arthroplasty is doing well no complaints here I will see her back as needed we can do this again in 3 months if necessary. She voiced understanding and agrees above plan she will call for any further problems difficulties or questions. Not available 01/25/2024 09:07:51 05/02/2024 05/02/2024 the patient has moderately severe primary osteoarthritis of the right knee joint. Under sterile conditions I injected the patient's right knee joint in the office with 4 cc 0.5% Marcaine and 20 mg of Kenalog. The patient tolerated the procedure well. I will see her back as needed we can do this again in 3 months if necessary she voiced understanding and agrees above plan she will call for any further problems difficulties or questions. Not available 05/02/2024 09:31:57 08/01/2024 08/01/2024 The patient has severe primary osteoarthritis right knee joint she is doing well with a left total knee arthroplasty. We talked about treatment options today she wants to proceed with the cortisone therefore under sterile conditions I injected the patient's right knee joint in the office with 4 cc 0.5% bupivacaine and 20 mg of Kenalog. The patient tolerated the procedure well. I will see her back as needed we can do this again in 3 months if necessary she voiced understanding and agrees above plan she will call for any further problems difficulties or questions. Not available 08/01/2024 09:21:21 10/31/2024 10/31/2024 The patient has severe primary osteoarthritis right knee joint she is status post left total knee arthroplasty this is doing well. At her request under sterile conditions I injected the patient's right knee joint in the office today with 4 cc 0.5% Bupivacaine and 20 mg of triamcinolone. Patient tolerated the procedure well. Will see her back as needed we can do this again in 3 months if necessary. For now she is going to avoid total knee arthroplasty and continue with current conservative measures she will call for any further problems difficulties or questions. Not available 10/31/2024 09:33:50 01/30/2025 01/30/2025 The patient has moderately severe primary osteoarthritis of the right knee joint as described. Under sterile conditions I injected the patient's right knee joint in the office today with 4 cc 0.5% bupivacaine and 20 mg of Kenalog. Patient tolerated the procedure well. Her left total knee arthroplasty is functioning well she is quite pleased with this today's x-rays show good stability and alignment of the implants in the left knee as well. I will see her back as needed we can do another shot of cortisone in the right knee in 3 months if necessary she will continue with current conservative measures and call for any further problems difficulties or questions she voiced understanding and agreed with the above plan. Not available 01/30/2025 09:22:57 Plan of Treatment Reminders Order Date Submit Date Provider Last Modified By Organization Details Last Modified Time Details Appointments Any 5 2024 08:15A MARLEN Greer Not available Not available Not available Lab None recorded. Referral None recorded. Procedures injection /aspirati on joint/bur sa (PROC) 2024 025 [email or web address] In-Office Order, Internal Use Only DO Not Attach Compendium DO Not Attach Compendium, Do Not Delete/merge, [id number] 01/30/2025 16:47:31 injection /aspirati on joint/bur sa (PROC) 2023 024 [email or web address] In-Office Order, Internal Use Only DO Not Attach Compendium DO Not Attach Compendium, Do Not Delete/merge, [id number] 10/31/2024 09:17:03 injection /aspirati on joint/bur sa (PROC) 2023 024 [email or web address] In-Office Order, Internal Use Only DO Not Attach Compendium DO Not Attach Compendium, Do Not Delete/merge, [id number] 08/01/2024 09:06:02 injection /aspirati on joint/bur sa (PROC) 2023 024 [email or web address] In-Office Order, Internal Use Only DO Not Attach Compendium DO Not Attach Compendium, Do Not Delete/merge, [id number] 05/02/2024 08:54:09 injection /aspirati on joint/bur sa (PROC) - in office procedure , administe red by provider 2023 024 [email or web address] In-Office Order, Internal Use Only DO Not Attach Compendium DO Not Attach Compendium, Do Not Delete/merge, [id number] 01/25/2024 09:01:56 Surgeries None recorded. Imaging XR, knee, 3 view 2024 025 [email or web address] [facility], [address] [place] [address], [phone], 01/30/2025 09:55:34 XR, knee 2023 024 [email or web address] [facility], [address] [place] [address], [phone], 01/25/2024 09:48:15 Medication Orders bupivacai ne HCl 0.5 % (5 mg/mL) injection solution 2024 025 [email or web address] [facility], [address] [place] [address], [id number], 01/30/2025 09:55:34 Kenalog 10 mg/mL suspensio n for injection 2024 025 [place] [address] [facility], [address] [place] [address], [id number], 01/30/2025 09:55:34 bupivacai ne HCl 0.5 % (5 mg/mL) injection solution 2023 024 [place] [address] [facility], [address] [place] [address], [id number], 10/31/2024 10:07:00 triamcino lone acetonide 40 mg/mL suspensio n for injection 2023 024 [place] [address] [facility], [address] [place] [address], [id number], 10/31/2024 10:07:00 bupivacai ne HCl 0.5 % (5 mg/mL) injection solution 2023 024 [place] [address] [facility], [address] [place] [address], [id number], 08/01/2024 10:35:36 Kenalog 10 mg/mL suspensio n for injection 2023 024 [place] [address] [facility], [address] [place] [address], [id number], 08/01/2024 10:35:36 Marcaine 0.5 % (5 mg/mL) injection solution 2023 024 [place] [address] [facility], [address] [place] [address], [id number], 05/02/2024 11:33:20 Kenalog 10 mg/mL suspensio n for injection 2023 024 [place] [address] [facility], [address] [place] [address], [id number], 05/02/2024 11:33:20 Kenalog 10 mg/mL suspensio n for injection 2023 024 [email or web address] [facility], [address] [place] [address], [id number], 01/25/2024 09:24:46 bupivacai ne HCl 0.5 % (5 mg/mL) injection solution 2023 024 [email or web address] [facility], [address] [place] [address], [id number], 01/25/2024 09:24:46 Patient TargetsNo targets recorded. Patient InstructionsNo instructions recorded. Reason for Referral None Reported. Results Created Date Observation Date Name Description Value Unit Range Abnormal Flag Note LastModifiedBy Organization Detail LastModifiedTime 01/25/20 24 XR, knee No observ ation record ed. [email or web address] [facility] [address], [place], [address], 01/25/2024 09:14:16 01/31/20 25 XR, knee, 3 view No observ ation record ed. [email or web address] [facility] [place] [id number] [facility], [place], [address], 01/30/2025 09:30:56 Result Notes None recorded. Problems Name Problem SNOMED Code Status Onset Date Resolution Date Notes Provider Name and Address Organization Details Recorded Time Plantar fasciitis of right foot 9718626280441 9101 Active 2021 Not Available [facility] 3 19:46:32 Hammer toe 027956080 Active 2021 Not Available [facility] 3 19:46:32 Postoperat lazara care Active 2021 Not Available [facility] 3 19:46:33 Hyperchole sterolemia 86823487 Active 2017 Not Available [facility] 3 19:46:33 Pain of toes of bilateral feet 9704474410026 9102 Active 2022 Not Available [facility] 3 19:46:33 Pain of left ankle joint 7726741919067 9103 Active 2022 Not Available [facility] 3 19:46:33 Pain of right elbow joint 1577593493425 9109 Active 2021 Not Available [facility] 3 19:46:33 Heartburn 80260458 Active 2017 Not Available [facility] 3 19:46:33 Postoperat lazara visit 940429311 Active 2021 Not Available [facility] 3 19:46:33 Dehiscence of surgical wound 91475118 Active 2021 Not Available [facility] 3 19:46:33 Lateral epicondyli tis of right humerus 0043935984766 07 Active 2021 Not Available [facility] 3 19:46:33 Osteoarthr itis of right knee joint 4683970856395 00 Active 2021 Not Available [facility] 3 19:46:33 Arthritis 8097555 Active 2017 Not Available [facility] 3 19:46:34 Hypertensi ve disorder 82111279 Active 2017 Not Available [facility] 3 19:46:34 Osteoarthr itis 075999064 Active 2021 Not Available [facility] 3 19:46:34 Bunion 734562264 Active 2021 Not Available [facility] 3 19:46:34 Bunion 873959976 Active 2021 Not Available [facility] 3 19:46:34 Pain of right knee joint 8028072597653 00 Active 2021 Not Available [facility] 3 19:46:34 Osteoporos is 63036634 Active 2017 Not Available [facility] 3 19:46:34 Dystrophia unguium 15903830 Active 2022 Not Available [facility] 3 19:46:34 Congenital pes planus 97550503 Active 2022 Alex Pineda, DPM [address] [facility], [facility] [address], [place], [address] , [facility] 14:29:31 Problem Notes None recorded. Procedures Surgical History Date Name Laterality Status Provider Name and Address Organization Details Recorded Time Knee Replacement completed Not Available [facility] 01/13/2023 19:45:56 Rotator cuff surgery completed Jenna Mccurdy CNA [facility] 10/26/2023 09:13:14 Imaging Results Imaging Date Name Status LastModified by Organiz ation Details LastModified Time 01/25/2024 XR, knee completed [email or web address] [facility] [address], [place], [address], 01/25/2024 09:14:16 01/30/2025 XR, knee, 3 view completed [email or web address] [facility] [address], [place], [address], 01/30/2025 09:30:56 Procedure Notes None recorded. Medical Equipment None Reported. Allergies No known drug allergies Medications Name Sig Start Date Stop Date Status Note LastModified by Organization Details LastModified Time penicillin V potassium 250 mg tablet 01/13 completed Not Available Not Available Not Available amoxicillin 500 mg capsule TAKE TWO CAPSULES BY MOUTH AT ONCE, THEN TAKE ONE CAPSULE FOUR TIMES DAILY UNTIL GONE FOR INFECTION 10/31 completed Not Available Not Available Not Available atorvastati n 40 mg tablet TAKE ONE TABLET BY MOUTH EVERY NIGHT AT BEDTIME TO LOWER CHOLESTER OL active Not Available Not Available No t Available prednisone 10 mg tablet 09/01 completed Not Available Not Available Not Available doxycycline hyclate 100 mg capsule Take 1 capsule twice a day by oral route as directed for 10 days. 10/26 completed Not Available Not Available Not Available cetirizine 10 mg tablet TAKE 1 TABLET BY MOUTH DAILY active Not Available Not Available No t Available azithromyci n 250 mg tablet TAKE 2 TABLETS BY MOUTH FOR 1 DAY THEN TAKE 1 TABLET BY MOUTH DAILY FOR 4 DAYS active Not Available Not Available No t Available ibuprofen 800 mg tablet TAKE ONE TABLET BY MOUTH TWICE DAILY NEEDED FOR PAIN active Not Available Not Available No t Available tizanidine 4 mg tablet 10/26 completed Not Available Not Available Not Available benzonatate 200 mg capsule TAKE 1 CAPSULE BY MOUTH EVERY 8 HOURS NEEDED FOR COUGH active Not Available Not Available No t Available Fish Oil 120 mg-180 mg-1000 mg capsule Take by oral route. 10/26 completed Not Available Not Available Not Available bupivacaine HCl 0.5 % (5 mg/mL) injection solution Take 4 mL by injection route. 2024 active Not Available Not Available Not Avai lable prednisone 20 mg tablet 01/27 completed Not Available Not Available Not Available penicillin V potassium 500 mg tablet TAKE 1 TABLET BY MOUTH FOUR TIMES DAILY FOR 10 DAYS 01/13 completed Not Available Not Available Not Available acetaminoph en 300 mg-codeine 30 mg tablet TAKE 1-2 TABLETS BY MOUTH EVERY 6 HOURS NEEDED FOR PAIN active Not Available Not Available No t Available amlodipine 5 mg tablet TAKE ONE TABLET BY MOUTH EVERY EVENING FOR BLOOD PRESSURE active Not Available Not Available No t Available tramadol 50 mg tablet TAKE 1 TABLET BY MOUTH EVERY 8 HOURS NEEDED 10/26 completed Not Available Not Available Not Available prednisone 10 mg tablets in a dose pack Take 1 tab by mouth, 3 times a day for 3 daysTake 1 tab by mouth 2 times a day for 2 daysTake 1 tab by mouth once a day for 1 day 09/01 completed Not Available Not Available Not Available oxycodone-a cetaminophe n 5 mg-325 mg tablet TAKE ONE TABLET BY MOUTH EVERY 6 HOURS NEEDED FOR moderate pain (4-6 ON scale) 10/26 completed Not Available Not Available Not Available prednisolon e acetate 1 % eye drops,suspe nsion instill one drop into surgical IN THE AFFECTED EYE THREE TIMES DAILY STARTING AFTER surgery AND continue FOR THREE WEEKS 10/26 completed Not Available Not Available Not Available ciprofloxac in 0.3 % eye drops instill ONE drop into surgical IN THE AFFECTED EYE THREE TIMES DAILY STARTING TWO WEEKS prior TO surgery AND continuin g FOR one WEEK AFTER 10/31 completed Not Available Not Available Not Available Kenalog 10 mg/mL suspension for injection Take 2 mL by injection route. [address] [facility]: 0003- 0494- 20 Not Available Not Available Not Available triamcinolo ne acetonide 40 mg/mL suspension for injection Take 20 mg by injection route. 2023 active Not Available Not Available Not Avai lable cephalexin 500 mg capsule TAKE ONE CAPSULE BY MOUTH EVERY 8 HOURS FOR 10 DAYS 10/26 completed Not Available Not Available Not Available erythromyci n 5 mg/gram (0.5 %) eye ointment apply ONE applicati on in THE affected IN THE AFFECTED EYE EVERY 8 HOURS 10/26 completed Not Available Not Available Not Available diclofenac 0.1 % eye drops instill one drop into surgical IN THE AFFECTED EYE THREE TIMES DAILY beginning TWO DAYS prior TO surgery AND continuin g FOR TWO WEEKS AFTER 10/31 completed Not Available Not Available Not Available hydrochloro thiazide 12.5 mg capsule TAKE 1 CAPSULE BY MOUTH EVERY DAY DIRECTED 01/13 completed Not Available Not Available Not Available ergocalcife rol (vitamin D2) 1,250 mcg (50,000 unit) capsule TAKE ONE CAPSULE BY MOUTH ONCE WEEKLY active Not Available Not Available No t Available methylpredn isolone 4 mg tablets in a dose pack FOLLOW PACKAGE DIRECTION S active Not Available Not Available No t Available albuterol sulfate HFA 90 mcg/actuati on aerosol inhaler INHALE 2 PUFFS BY MOUTH EVERY 4-6 HOURS NEEDED active Not Available Not Available No t Available celecoxib 100 mg capsule TAKE 1 CAPSULE BY MOUTH EVERY DAY NEEDED 10/26 completed Not Available Not Available Not Available losartan 100 mg tablet TAKE ONE TABLET BY MOUTH EVERY DAY FOR BLOOD PRESSURE active Not Available Not Available No t Available fluticasone propionate 50 mcg/actuati on nasal spray,suspe nsion 1 SPRAY IN EACH NOSTRIL EVERY NIGHT BEFORE BEDTIME active Not Available Not Available No t Available naproxen 500 mg tablet TAKE 1 TABLET BY MOUTH TWICE DAILY WITH FOOD 10/26 completed Not Available Not Available Not Available Oyster Shell Calcium-Vit lopez D3 500 mg-5 mcg (200 unit) tablet TAKE 1 TABLET BY MOUTH TWICE DAILY 10/26 completed Not Available Not Available Not Available nitrofurant oin monohydrate /macrocryst als 100 mg capsule 10/26 completed Not Available Not Available Not Available losartan 100 mg-hydrochl orothiazide 12.5 mg tablet TAKE ONE TABLET BY MOUTH EVERY MORNING FOR BLOOD PRESSURE & FLUID RETENTION active Not Available Not Available No t Available calcium 2017 active Not Available Not Available Not Avai lable lidocaine (PF) 10 mg/mL (1 %) injection solution In office injection administe red by the provider 01/[address] [facility]: [phone]- [phone]- 17 Not Available Not Available Not Available hydrochloro thiazide 12.5 mg tablet TAKE 1 TABLET BY MOUTH ONCE DAILY FOR BLOOD PRESSURE AND FOR FLUID RETENTION active Not Available Not Available No t Available ropivacaine (PF) 5 mg/mL (0.5 %) injection solution Take 20 mg by injection route. 10/[address] [facility] [phone] -[phone]- [phone] Not Available Not Available Not Available COVID-19 test specimen collection TEST DIRECTED TODAY 01/13 completed Not Available Not Available Not Available BinaxNOW COVID-19 Ag Self Test kit TEST DIRECTED TODAY active Not Available Not Available No t Available Paxlovid 300 mg (150 mg x 2)-100 mg tablets in a dose pack FOLLOW PACKAGE DIRECTION S 10/26 completed Not Available Not Available Not Available Vitals Date Recorded Body height Body mass index (BMI) Body weight Provider Name and Address Organization Details Last Updated DateTime 01/25/2024 160.02 cm 34.5 kg/m2 06944.51 g Jenna Mccurdy CNA [employer] [facility] 01/25/2024 08:54:49 Date Recorded Body height Body mass index (BMI) Body weight Provider Name and Address Organization Details Last Updated DateTime 05/02/2024 160.02 cm 33.7 kg/m2 76672.55 g [facility] 05/02/2024 08:51:34 Date Recorded Body height Provider Name an d Address Organization Details Last Updated DateTime 08/01/2024 160.02 cm [facility] 08/01/2024 09:04:10 Date Recorded Body height Body mass index (BMI) Body weight Provider Name and Address Organization Details Last Updated DateTime 10/31/2024 160.02 cm 33.7 kg/m2 92007.55 g [facility] 10/31/2024 09:12:38 Date Recorded Body height Body mass index (BMI) Body weight Pain severity - 0-10 verbal numeric rating [Score] - Reported Provider Name and Address Organization Details Last Updated DateTime 01/30/2025 160.02 cm 33.7 kg/m2 41785.55 g 9 TAMIKO Gonzalez [place] [facility] [place] [facility] 01/30/2025 09:02:27 Social History Question Answer Notes LastModified by Organizat ion Details LastModified Time Tobacco Smoking Status Former Smoker Not Available [facility] 01/13/2023 19:45:46 What Is Your Level Of Alcohol Consumption? None [id number] Information not available 01/13/2023 What Is Your Level Of Caffeine Consumption? Occasional [id number] Information not available 01/13/2023 What Was The Date Of Your Most Recent Tobacco Screening? 02/12/2022 [id number] Information not available 01/13/2023 Do You Use Any Illicit Or Recreational Drugs? No [id number] Information not available 01/13/2023 Has Tobacco Cessation Counseling Been Provided? No [id number] Information not available 01/13/2023 Do You Or Have You Ever Used Any Other Forms Of Tobacco Or Nicotine? No [id number] Information not available 01/13/2023 Sex: Unknown Functional Status None recorded. Mental Status None recorded. Family History Relationship Description Onset Age of this Age Resolved Age Notes LastModified by Organization Details LastModified Time Unspecified Relation Diabetes mellitus [id number] Not available 01/13/2023 19:45:56 Brother Hypertensive disorder [id number] Not available 01/13/2023 19:45:56 Sister Hypertensive disorder [email or web address] Not available 2022 09:12:34 Notes:CANCER: sister Medical History Condition Response ARTHRITIS Y OSTEOPOROSIS Y HYPERTENSION Y HIGH CHOLESTEROL / HYPERLIPIDEMIA Y Gynecological HistoryNo gynecological history recorded. Obstetrics History GPAL:G 0 P 0 0 0 0 Past Encounters Encounter ID Performer Location Encounter Start Date Encounter Closed Date Diagnosis/Indication Diagnosis SNOMED-CT Code Diagnosis ICD10 Code Diagnosis Note [id number] Arvind Shannon MD [facility] [address] [address] 09/02/2021 00:00:00 09/02/2021 10:21:40 [id number] Arvind Shannon MD [facility] [address] [address] 10/14/2021 00:00:00 10/14/2021 10:16:09 [id number] Arvind Shannon MD [facility] [address] [address] 01/13/2022 00:00:00 01/13/2022 10:23:49 [id number] Alex Pindea DPM [facility] [address] [place] [address] 02/12/2022 00:00:00 02/12/2022 10:41:30 [id number] Alex Pineda DPM [facility] [address] [address] 02/23/2022 00:00:00 03/13/2022 14:23:15 [id number] Arvind Shannon MD [facility] [address] [address] 04/14/2022 00:00:00 04/14/2022 10:30:34 [id number] [facility] [address] [place] [address] 04/16/2022 00:00:00 04/16/2022 13:20:28 [id number] [facility] [address] [place] [address] 06/15/2022 00:00:00 06/15/2022 11:10:37 [id number] Alex Pineda DPM [facility] [address] [address] 06/22/2022 00:00:00 06/29/2022 09:34:35 [id number] Alex Pineda DPM [facility] [address] [place] [address] 07/02/2022 00:00:00 07/02/2022 09:48:30 [id number] [facility] [address] [place] [address] 07/16/2022 00:00:00 07/16/2022 09:31:59 [id number] Arvind Shannon MD [facility] [address] [address] 07/21/2022 00:00:00 07/21/2022 09:19:52 [id number] [facility] [address] [address] 08/17/2022 00:00:00 08/17/2022 10:33:43 [id number] Arvind Shannon MD [facility] [address] [address] 09/01/2022 00:00:00 09/01/2022 10:25:15 [id number] Arvind Shannon MD [facility] [address] [address] 10/20/2022 00:00:00 10/20/2022 09:33:18 [id number] Alex Pineda DPM [facility] [address] [place] [address] 01/12/2023 00:00:00 01/14/2023 12:18:58 [id number] MARLEN Hernandez [facility] [address] [address] 01/19/2023 09:02:34 01/19/2023 10:42:48 Osteoarthritis of right knee joint 3084624285 04351 M17.11 Pain of ri ght knee joint 4725775705 93632 M25.561 [id number] Alex Pineda DPM [facility] [address] [address] 02/11/2023 13:51:12 02/12/2023 14:54:21 Pain of left ankle joint 5284434926 3869790 M25.572 X-rays reviewed with the patientRec hod lace-up ankle braceconti nue supportive shoe gearrecomm end [facility], [place] for flat feetfollow -up as needed Congenital pes planus 23 269672 Q66.50 recommend orthotics [id number] Arvind Shannon MD [place] [address] 04/20/2023 08:49:57 04/20/2023 09:19:41 Osteoarthritis of right knee joint 8937936833 88971 M17.11 Pain of ri ght knee joint 6895415080 99927 M25.875 [id number] Arvind Shannon MD [place] [address] 07/27/2023 08:49:22 07/27/2023 09:09:49 Osteoarthritis of right knee joint 8923696206 23912 M17.11 Pain of ri ght knee joint 5547798179 19385 M25.561 History of left total knee replacement 9720292854 165569 Z96.372 [id number] MARLEN Hernandez [place] [address] 9 10/26/2023 08:46:27 10/26/2023 09:29:54 Osteoarthritis of right knee joint 1956067092 90408 M17.11 Pain of ri ght knee joint 8222448978 11458 M25.561 History of total knee arthroplasty 0251506278 105 Z96.648 [id number] Hari Danielle MD [address] [address] 01/25/2024 08:51:20 01/25/2024 09:48:15 Osteoarthritis of right knee joint 5712425292 47841 M17.11 Pain of ri ght knee joint 6617799141 60489 M25.561 History of arthroplasty of left knee 8163689524 684720 Z96.087 [id number] Hari Danielle MD [facility] [address] [address] 05/02/2024 08:46:10 05/02/2024 09:26:22 Osteoarthritis of right knee joint 3640982452 86970 M17.11 Pain of ri ght knee joint 7245325927 00932 M25.561 History of left total knee replacement 0293124271 518437 Z96.634 [id number] Hari Danielle MD [address] [address] 08/01/2024 08:52:09 08/01/2024 09:18:27 Osteoarthritis of right knee joint 2710105078 22874 M17.11 Pain of ri ght knee joint 2538775535 45231 M25.561 History of left total knee replacement 8429671764 770121 Z96.333 [id number] Hari Danielle MD [address] [address] 10/31/2024 08:58:16 10/31/2024 09:34:36 Osteoarthritis of right knee joint 8438662254 50786 M17.11 Pain of ri ght knee joint 9324094910 75965 M25.561 History of left total knee replacement 5115371254 227007 Z96.688 [id number] Hari Danielle MD [address] [id number] 01/30/2025 08:54:07 01/30/2025 09:24:45 Osteoarthritis of right knee joint [id number] M17.11 Pain of ri ght knee joint [id number] M25.561 M25.562 Health Concerns Section Related Observation LastModified by Organization Detai ls LastModified Time None Recorded Concern Status LastModified by Organization Details LastModified Time None Recorded Advance Directives Directive None Recorded Payers Encounter Date Sequence Insurance Name Policy Number Policy Curiel Covered Member ID Curiel Member ID Guarantor Name 01/25/2024 1 [facility] (MEDICARE REPLACEMENT/A DVANTAGE - PPO) [id number] Radha [place] [id number] Radha meza 01/25/2024 2 [place] [facility] DEPARTMENT OF PUBLIC AID Radha ChinVinnie [id number] Radha Fredi-Coope r 05/02/2024 1 [facility] (MEDICARE REPLACEMENT/A DVANTAGE - PPO) [id number] Radha [place] [id number] Radha Fredi-Coope r 05/02/2024 2 [place] [facility] Radha Rai-Vinnie [id number] Radha Fredi-Coope r 08/01/2024 1 [facility] (MEDICARE REPLACEMENT/A DVANTAGE - PPO) [id number] Radha [place] [id number] Radha Fredi-Coope r 08/01/2024 2 [place] [facility] Radha Rai-Vinnie [id number] Radha Fredi-Coope r 10/31/2024 1 [facility] (MEDICARE REPLACEMENT/A DVANTAGE - PPO) [id number] Radha Rai Vinnie [id number] Radha [place] r 10/31/2024 2 [place] [facility] DEPARTMENT OF [facility] Radha Gibson [id number] Radha Fredi-Coope r 01/30/2025 1 [facility] (MEDICARE REPLACEMENT/A DVANTAGE - PPO) [id number] Radha Rai Vinnie [id number] Radha [place] r 01/30/2025 2 [place] [facility] DEPARTMENT OF [facility] Radha Rai-Vinnie [id number] Radha [place] r Notes Date Note Type Note Provider Name and Address Organization Details Recorded Time 01/25/2024 text/html Patient returns with right knee pain she has moderately severe primary osteoarthritis with narrowing in the tibial femoral articulations as well as the patellofemoral compartment she has tricompartmental osteoarthritis. Today she states she has no new symptoms or complaints other than recurrence of her old pain a shot of cortisone 3 months ago gave her excellent relief but has worn off now. She is having pain that she describes as a 10 on a scale 1-10 she does walk with a limp there is no effusion or swelling denies any new trauma or injury. Currently she is failing conservative measures on her own at home she would like another shot of cortisone today. She does have a left total knee this is doing well no complaints here. MARLEN Hernandez [address], [address], [place], [address], [email or web address] [facility] 01/25/2024 09:14:38 05/02/2024 text/html Patient returns with right knee pain she has moderately severe primary osteoarthritis of the right knee with narrowing in the tibial femoral articulation as well as the patellofemoral compartment she has tricompartmental osteoarthritis she has a left total knee arthroplasty and is doing well right knee continues mother she comes in review months for cortisone she would like another shot today denies any new problems the knee no new trauma or injury. No effusion or swelling no erythema heat or other signs of infection. MARLEN Hernandez [address], [address], [place], [address], [employer] 05/02/2024 09:32:12 08/01/2024 text/html Patient returns with right knee pain. A shot of cortisone 3 months ago gave her excellent relief. She is trying to avoid total knee arthroplasty she has had the opposite side done he is doing okay with this. She denies any new problems with the right knee she has severe primary osteoarthritis of the right knee with narrowing in the tibiofemoral articulation as well as a patellofemoral compartment with tricompartmental osteoarthritis. Denies any effusion or swelling no erythema heat or other signs of infection today. No new trauma or injury. MARLEN Hernandez [address], [address], [place], [address], [employer] 08/01/2024 09:21:40 10/31/2024 text/html Patient returns for a cortisone injection into the right knee. She has a left total knee arthroplasty this is doing well she is trying to avoid getting the right knee down for awhile. She has severe primary osteoarthritis with narrowing in the tibial femoral articulation as well as the patellofemoral compartment with tricompartmental osteoarthritis. Denies any new problems no new trauma or injury no erythema effusion or signs of infection. The patient has pain that she rates about a 10 on a scale of 1-10 in the right knee has trouble squatting kneeling going up and down stairs can not stand or walk for long periods she has had chronic pain in the right knee she gets by with cortisone which last almost 3 months at a time gives her pretty good relief. A new past medical history sheet was reviewed and signed on intake sheet of today's date drug allergies current medications family social history previous surgical history 10 point review of systems was reviewed and discussed in detail today with the patient. MARLEN Hernandez [address], [address], [place], [address], [employer] 10/31/2024 09:33:59 01/30/2025 text/html The patient retu rns with right knee pain she has a previous left total knee arthroplasty this is doing well her right knee has moderately severe primary osteoarthritis with narrowing in the medial compartment as well as the patellofemoral articulations on the medial and lateral facets with small marginal osteophyte kissing lesions. We got new x-rays today it has been more than a year since her last x-rays. X-rays show fairly stable osteoarthritis. She does take ibuprofen daily this seems to help. She is trying to avoid total knee arthroplasty on the right she is doing well with her left total knee but states she would rather avoid doing another surgery like that. She states the aching pain has significantly increased recently as the last cortisone shot has worn off she would like another shot today denies any new symptoms no new trauma or injury no erythema effusion or signs of infection. MARLEN Hernandez [address], [place], [address], [employer] 01/30/2025 09:31:39 OBGyn Episode No OBEpisode recorded.
[2025-03-20 09:18] VITALS: BP 167/81; PULSE 82; RESP 18; TEMP 36; O2SAT 100
[2025-03-20] MEDS: LACTATED RINGERS 1,000 ML 150 ML IV CONT (09:30)
--- NOTE | 2025-03-20 09:46 | P.PNAN_ITS ---
Anes - Initial Pre Proc Eval Procedure: Operation Date: 03/20/25 10:00 Proposed Procedures p Screening Colonoscopy - Rhett Moreno MD Date/Time: 03/20/25 09:46 Surgeon: Rhett Moreno MD Pre Op Diagnosis: Screening Patient Data Age: 70 Gender: F Height: 1.57 m Weight: 94.2 kg Last Vital Signs Temp 96.8 F L 03/20/25 09:18 Pulse 82 03/20/25 09:18 Resp 18 03/20/25 09:18 BP 167/81 H 03/20/25 09:18 Pulse Ox 100 03/20/25 09:18 O2 Del Method Room Air 03/20/25 09:18 Allergies Allergy/AdvReac Type Severity Reaction Status Date / Time No Known Allergies Allergy Verified 03/20/25 09:16 Home Medications ?Medication ?Instructions ?Recorded ?Confirmed ?Type albuterol sulfate 90 mcg/actuation 2 puff inhalation PRN sob 03/08/25 03/08/25 History aerosol inhaler amlodipine 5 mg tablet 5 mg PO DAILY 03/08/25 03/20/25 History amoxicillin 875 mg tablet 875 mg PO Q12H Tooth infection 03/08/25 03/20/25 History atorvastatin 40 mg tablet 40 mg PO QPM 03/08/25 03/20/25 History ergocalciferol (vitamin D2) 1,250 1,250 mcg PO WEEKLY 03/08/25 03/08/25 History mcg (50,000 unit) capsule losartan 100 1 tablet PO DAILY 03/08/25 03/20/25 History mg-hydrochlorothiazide 12.5 mg tablet multivitamin (Daily Multi-Vitamin 1 tablet PO DAILY 03/08/25 03/20/25 History tablet) Patient hx anesthesia problems: none Family hx anesthesia problems: none Results Review: All pre-operative results and documents have been reviewed as part of the pre- operative evaluation. PMFSH Social History Social History Years smoked: 10 Smoking status: Former smoker Living arrangements: with family Spiritual care concerns: No Anes - Eval Final PreProcedure Day of Procedure 03/20/25 09:46 Patient weight: obese Heart: regular rate and rhythm Lungs: clear to auscultation Airway: Mallampati scale class II Neurological: alert and oriented Last oral intake: >/= 8 hours ASA classification: III Emergent: no Anesthetic plan: proceed Anesthesia type and monitoring: general GIVS and standard monitoring Results Review: All pre-operative results and documents have been reviewed as part of the pre-operative evaluation. Informed Consent: The patient's anesthetic plan and its attendant risks and benefits were discussed with the patient/family/POA. Questions were solicited and answers provided to the satisfaction of the patient/family/POA.
--- NOTE | 2025-03-20 09:57 | PM.HPGS ---
History of Present Illness History of Present Illness Consent: Risks, benefits, and alternatives have been discussed and questions answered. Patient agrees to proceed with procedure. Chief complaint: Screening Narrative: Radha Birmingham is a 70 year old female here for colonoscopy, last one 8 years ago Review of Systems Review of Systems: All systems reviewed & are unremarkable except as noted in HPI and below PMFSH Past Medical History Medical History (Updated 03/20/25 @ 09:57 by Rhett Moreno MD) Colon cancer screening Social History Social History Years smoked: 10 Smoking status: Former smoker Living arrangements: with family Spiritual care concerns: No Meds Home Medications and Allergies Home Medications ?Medication ?Instructions ?Recorded ?Confirmed ?Type albuterol sulfate 90 mcg/actuation 2 puff inhalation PRN sob 03/08/25 03/08/25 History aerosol inhaler amlodipine 5 mg tablet 5 mg PO DAILY 03/08/25 03/20/25 History amoxicillin 875 mg tablet 875 mg PO Q12H Tooth infection 03/08/25 03/20/25 History atorvastatin 40 mg tablet 40 mg PO QPM 03/08/25 03/20/25 History ergocalciferol (vitamin D2) 1,250 1,250 mcg PO WEEKLY 03/08/25 03/08/25 History mcg (50,000 unit) capsule losartan 100 1 tablet PO DAILY 03/08/25 03/20/25 History mg-hydrochlorothiazide 12.5 mg tablet multivitamin (Daily Multi-Vitamin 1 tablet PO DAILY 03/08/25 03/20/25 History tablet) Allergies Allergy/AdvReac Type Severity Reaction Status Date / Time No Known Allergies Allergy Verified 03/20/25 09:16 Vital Signs Vital Signs - 24 hr 03/20/25 09:18 Temperature 96.8 F L Pulse Rate 82 Respiratory Rate 18 Blood Pressure 167/81 H Pulse Oximetry 100 Oxygen Delivery Room Air Exam Const: General: comfortable and no acute distress HENMT: Face/Nose/Sinus: Normal nares present Eyes: General: appearance normal, both eyes and all related structures Neck: Neck: no JVD Resp: Auscultation: clear to auscultation bilaterally Cardio: Rate: regular rate Rhythm: regular rhythm GI: Inspection: non-distended GI Palp: Yes Soft to palpation Skin: General skin exam: normal color Neuro: General: gait normal Speech: normal speech Extrem: General: normal to inspection Psych: Mental Status: mental status grossly normal Assessment and Plan Assessment and plan (1) Colon cancer screening: Code(s): Z12.11 - Encounter for screening for malignant neoplasm of colon Status: Acute Assessment and Plan: colonoscopy
[2025-03-20 10:19] VITALS: BP 94/50; PULSE 90; RESP 24; O2SAT 100
[2025-03-20 10:29] VITALS: BP 131/63; PULSE 83; RESP 23; O2SAT 100
[2025-03-20 10:39] VITALS: BP 128/68; PULSE 79; RESP 20; O2SAT 99
== END 2025-03-20 10:44 | disposition home or self-care (01) ==
PROVIDERS: PCP Internal Medicine Gastroenterology; Referring Provider Internal Medicine Gastroenterology; Visit Provider Internal Medicine Gastroenterology
PROC: 0DJD8ZZ Inspection of Lower Intestinal Tract, Via Natural or Artificial Opening Endoscopic (ICD-10-PCS; CPT 45378; principal; 2025-03-20 10:00)
DX: Z12.11 Encounter for screening for malignant neoplasm of colon (principal); D12.4 Benign neoplasm of descending colon; K57.30 Diverticulosis of large intestine without perforation or abscess without bleeding; K64.8 Other hemorrhoids; Z87.891 Personal history of nicotine dependence; E66.9 Obesity, unspecified; Z68.38 Body mass index [BMI] 38.0-38.9, adult
CPT/HCPCS: 45385; 88305; J2405; J2704; J7120

== ENCOUNTER 2025-03-23 10:31 | Outpatient (CLI) | payer MEDICARE, MEDICAID, SELFPAY ==
--- NOTE | ~2025-03-23 | MM_ITS ---
EXAMINATION: MM screening gaby BI w sia HISTORY: Screening TECHNIQUE: Craniocaudal and mediolateral oblique 3-D tomosynthesis images were obtained and synthetic 2-D images were generated. CAD analysis was submitted and interpreted. COMPARISON: No prior mammogram is available for comparison at this institution. BREAST PARENCHYMAL COMPOSITION: Not dense: There are scattered areas of fibroglandular density. FINDINGS: There is no evidence of suspicious mass, calcification, or architectural distortion to sugg est malignancy in either breast. There has been no suspicious interval change. IMPRESSION: 1. No mammographic evidence of malignancy. 2. Recommend routine screening mammography in one year. BI-RADS Category 1: Negative Reviewed, dictated and finalized at location A.
== END 2025-03-23 10:32 | disposition home or self-care (01) ==
LOC: MICIMG 10:32
PROVIDERS: PCP Internal Medicine Gastroenterology; Visit Provider Internal Medicine Gastroenterology
DX: Z12.31 Encounter for screening mammogram for malignant neoplasm of breast (principal)
CPT/HCPCS: 77063; 77067